=== PATIENT | male | born 1965 | race Caucasian/White ===

== ENCOUNTER → 2021-08-02 | Outpatient (CLI) | payer MEDICAID ==
[~2021-08-02] MED LIST: HYDR-4001 MT
== END | disposition home or self-care (01) ==
LOC: COVVAC 10:43
PROVIDERS: ATTEND Neurological Surgery
DX: Z20.822 Contact with and (suspected) exposure to COVID-19 (principal)
CPT/HCPCS: 87426

== ENCOUNTER 2021-08-04 05:23 | Inpatient (IN) | payer MEDICAID, OTHER ==
[~2021-08-04] VITALS: Ht 193 cm; Wt 67.1 kg
[2021-08-04] VITALS (45 sets, daily range): BP systolic 93–143; BP diastolic 48–91
[~2021-08-04 05:23] MED LIST changes: -HYDR-4001 MT; +METHADONE HCL 10MG TABLET PO NR
[2021-08-04] MEDS ORDERED: LACTATED RINGERS 1,000 ML IV SCH (06:15)
[2021-08-04] MEDS ORDERED: BACITRACIN 15GM TUBE TOP ONE (07:22)
[2021-08-04] MEDS ORDERED: GENTAMICIN SULF 40MG/ML 2ML VIAL ONE (07:22)
[2021-08-04] MEDS ORDERED: THROMBIN (BOVINE) 5000 UNITS/VIAL TOP ONE (07:23)
[2021-08-04 08:01] LABS: *BARBITURATES SCREEN URINE NEGATIVE (NEGATIVE); *BENZODIAZEPINES SCREEN URINE NEGATIVE (NEGATIVE); CANNABINOID URINE SCREEN PRESUMTIVE POSITIVE (NEGATIVE); METHADONE URINE SCREEN PRESUMTIVE POSITIVE (NEGATIVE); OPIATES URINE SCREEN PRESUMTIVE POSITIVE (NEGATIVE); PHENCYCLIDINE URINE SCREEN NEGATIVE (NEGATIVE)
[2021-08-04 08:02] LABS: *AMPHETAMINES SCREEN URINE PRESUMTIVE POSITIVE (NEGATIVE); *COCAINE SCREEN URINE NEGATIVE (NEGATIVE)
[2021-08-04] MEDS ORDERED: FENTANYL CITRATE/PF 50MCG/ML 2ML VIAL ONE (08:42)
[2021-08-04] MEDS ORDERED: PROPOFOL 200MG/20ML VIAL IV ONE (08:43)
[2021-08-04] MEDS ORDERED: GLYCOPYRROLATE 0.2 MG/ML 2ML VIAL ONE ×2 (08:43→11:39)
[2021-08-04] MEDS ORDERED: ROCURONIUM BROMIDE 10MG/ML VIAL 5ML IV ONE ×2 (08:43→09:45)
[2021-08-04] MEDS ORDERED: MIDAZOLAM HCL 2 MG/2 ML VIAL ONE (08:43)
[2021-08-04] MEDS ORDERED: NEOSTIGMINE METHYLSULFATE 1MG/ML 10 ML VIAL ONE (08:43)
[2021-08-04] MEDS ORDERED: DEXAMETHASONE 4MG/ML 1ML VIAL ONE (09:09)
[2021-08-04] MEDS ORDERED: ONDANSETRON HCL 4MG/2ML INJ ONE (09:09)
[2021-08-04] MEDS ORDERED: MEPERIDINE HCL/PF 25MG/ML CPJ IV PRN ×3 (09:30→11:45)
[2021-08-04] MEDS ORDERED: ONDANSETRON HCL 4MG/2ML INJ IV PRN ×3 (09:30→11:45)
[2021-08-04] MEDS ORDERED: HYDROMORPHONE HCL/PF 2MG/ML CPJ IV PRN ×2 (09:30→11:45)
[2021-08-04] MEDS ORDERED: LABETALOL 5MG/ML SYR 20 MG/4 ML SYRINGE IV PRN ×3 (09:30→11:45)
[2021-08-04] MEDS ORDERED: NALOXONE HCL 0.4 MG/ML 1ML VIAL ONE (11:40)
[2021-08-04] MEDS ORDERED: NICARDIPINE 100 MG in SODIUM CHLORIDE 0.9% 60 ML IV PRN (12:00)
[2021-08-04] MEDS: DEXT 5%/LACTATED RINGERS 1,000 ML IV SCH ×2 (12:00→23:30)
[2021-08-04] MEDS: HYDROMORPHONE HCL/PF 2MG/ML CPJ IV PRN ×2 (12:20→12:29)
[2021-08-04] MEDS ORDERED: HYDROMORPHONE PCA 10MG/50ML IV PRN (12:45)
[2021-08-04] MEDS ORDERED: ONDANSETRON INJ IV PRN (12:45)
[2021-08-04] MEDS ORDERED: NALOXONE INJ IV PRN (12:45)
[2021-08-04] MEDS ORDERED: DIPHENHYDRAMINE INJ IV PRN (12:45)
[2021-08-04] MEDS ORDERED: HYDROMORPHONE PCA 50 ML IV ONE (12:48)
[2021-08-04] MEDS: MORPHINE SULFATE 4 MG/ML CPJ (NOT FOR IM USE) IV PRN ×3 (14:01→21:23)
[2021-08-04] MEDS: DEXAMETHASONE 4MG/ML 1ML VIAL IV SCH ×3 (14:01→23:51)
[2021-08-04] MEDS ORDERED: MAGNESIUM/ALUMINUM HYDROXIDE/SIMETHICONE 30ML UDC PO PRN (14:15)
[2021-08-04] MEDS ORDERED: CLONIDINE 0.1MG TABLET PO PRN (14:15)
[2021-08-04] MEDS: OMEPRAZOLE 20MG CAPSULE EXTENDED RELEASE PO SCH (15:24)
[2021-08-05] VITALS (46 sets, daily range): BP systolic 84–145; BP diastolic 43–94
[2021-08-05] MEDS: MORPHINE SULFATE 4 MG/ML CPJ (NOT FOR IM USE) IV PRN (01:20)
[2021-08-05 05:45] LABS: HEMATOCRIT. 38.8 % (42.0-52.0); MEAN CORPUSCULAR HEMOGLOBIN 29.2 pg (28.0-32.0); MEAN PLATELET VOLUME 8.1 fl (7.4-10.4); PLATELET 413 x1000/uL (130-400); RED BLOOD CELL COUNT 4.45 mill/uL (4.7-6.1); RED CELL DISTRIBUTION WIDTH 12.8 % (11.6-14.6)
[2021-08-05] MEDS: DEXAMETHASONE 4MG/ML 1ML VIAL IV SCH ×2 (05:46→13:04)
[2021-08-05 05:59] LABS: CHLORIDE 99 mEq/L (98-107)
[2021-08-05] MEDS: OMEPRAZOLE 20MG CAPSULE EXTENDED RELEASE PO SCH (06:04)
[2021-08-05] MEDS: DEXT 5%/LACTATED RINGERS 1,000 ML IV SCH ×2 (08:00→19:00)
[2021-08-05 08:49] LABS: PLATELET ESTIMATE SLIGHTLY INCREASED
[2021-08-05] MEDS ORDERED: BISACODYL 5MG TABLET PO PRN (10:15)
[2021-08-05] MEDS ORDERED: METHADONE 70 MG XX SCH (10:15)
[2021-08-05] MEDS: METHADONE HCL 10MG TABLET PO SCH (13:04)
[2021-08-06] VITALS: BP 118/62
[2021-08-06] MEDS: DEXT 5%/LACTATED RINGERS 1,000 ML IV SCH ×2 (03:33→15:02)
[2021-08-06 04:00] VITALS: BP 114/72
[2021-08-06 07:05] LABS: BASOPHILS % 0.3 % (0.0-2.0); HEMATOCRIT. 35.2 % (42.0-52.0); HEMOGLOBIN. 11.7 g/dL (14.0-18.0); LYMPHOCYTES % 7.5 % (20.0-50.0); MEAN CORPUSCULAR HEMOGLOBIN 29.1 pg (28.0-32.0); MEAN CORPUSCULAR VOLUME 87.8 fL (80.0-94.0); NEUTROPHILS % 85.2 % (40.0-76.0); PLATELET 409 x1000/uL (130-400); RED CELL DISTRIBUTION WIDTH 13.1 % (11.6-14.6)
[2021-08-06] MEDS: OMEPRAZOLE 20MG CAPSULE EXTENDED RELEASE PO SCH (07:06)
[2021-08-06 07:10] LABS: CHLORIDE 98 mEq/L (98-107)
[2021-08-06 08:00] VITALS: BP 120/68
[2021-08-06 12:00] VITALS: BP 111/73
[2021-08-06] MEDS: METHADONE HCL 10MG TABLET PO SCH (12:48)
[2021-08-06 16:00] VITALS: BP 119/70
[2021-08-06 20:00] VITALS: BP 97/59
[2021-08-07] VITALS: BP 111/71
[2021-08-07] MEDS: DEXT 5%/LACTATED RINGERS 1,000 ML IV SCH ×3 (02:02→20:00)
[2021-08-07 04:00] VITALS: BP 109/64
[2021-08-07] MEDS: MORPHINE SULFATE 4 MG/ML CPJ (NOT FOR IM USE) IV PRN ×4 (04:17→22:57)
[2021-08-07 08:00] VITALS: BP 124/75
[2021-08-07] MEDS: FAMOTIDINE 20MG TABLET PO SCH ×2 (09:07→20:00)
[2021-08-07 12:00] VITALS: BP 107/70
[2021-08-07] MEDS: METHADONE HCL 10MG TABLET PO SCH (13:20)
[2021-08-07 16:00] VITALS: BP 101/62
[2021-08-07] MEDS ORDERED: NALOXONE HCL 0.4MG/ML VIAL IV PRN (18:15)
[2021-08-07 20:00] VITALS: BP 103/63
[2021-08-08] VITALS: BP 108/72
[2021-08-08 04:00] VITALS: BP 123/80
[2021-08-08] MEDS: DEXT 5%/LACTATED RINGERS 1,000 ML IV SCH ×2 (06:04→16:47)
[2021-08-08] MEDS: MORPHINE SULFATE 4 MG/ML CPJ (NOT FOR IM USE) IV PRN ×4 (06:05→20:04)
[2021-08-08 08:00] VITALS: BP 119/74
[2021-08-08] MEDS: FAMOTIDINE 20MG TABLET PO SCH ×2 (09:27→20:05)
[2021-08-08 12:00] VITALS: BP 114/81
[2021-08-08] MEDS: METHADONE HCL 10MG TABLET PO SCH (12:26)
[2021-08-08 16:00] VITALS: BP 110/67
[2021-08-08 20:00] VITALS: BP 94/63
[2021-08-09] VITALS: BP 101/62
[2021-08-09] MEDS: DEXT 5%/LACTATED RINGERS 1,000 ML IV SCH ×2 (02:39→12:59)
[2021-08-09] MEDS: MORPHINE SULFATE 4 MG/ML CPJ (NOT FOR IM USE) IV PRN (02:39)
[2021-08-09 04:00] VITALS: BP 123/70
[2021-08-09 08:00] VITALS: BP 103/64
[2021-08-09] MEDS: FAMOTIDINE 20MG TABLET PO SCH (08:58)
[2021-08-09 12:00] VITALS: BP 91/64
[2021-08-09] MEDS: METHADONE HCL 10MG TABLET PO SCH ×2 (12:00→16:01)
[2021-08-09] MEDS: POLYETHYLENE GLYCOL 3350 (17GM) 1 DOSE PACK PO SCH (13:00)
[2021-08-09 16:00] VITALS: BP 112/67
[2021-08-09] MEDS: DOCUSATE SODIUM 100MG CAPSULE PO SCH (17:29)
[2021-08-09 20:00] VITALS: BP 88/47
[2021-08-10] VITALS (7 sets, daily range): BP systolic 96–125; BP diastolic 53–76
[2021-08-10] MEDS: FAMOTIDINE 20MG TABLET PO SCH ×3 (00:36→20:45)
[2021-08-10] MEDS: DEXT 5%/LACTATED RINGERS 1,000 ML IV SCH ×3 (00:36→17:10)
[2021-08-10] MEDS: MORPHINE SULFATE 4 MG/ML CPJ (NOT FOR IM USE) IV PRN ×3 (05:47→21:58)
[2021-08-10] MEDS: POLYETHYLENE GLYCOL 3350 (17GM) 1 DOSE PACK PO SCH (09:00)
[2021-08-10] MEDS: DOCUSATE SODIUM 100MG CAPSULE PO SCH ×2 (09:49→17:10)
[2021-08-10] MEDS ORDERED: LACTULOSE 20G/30ML UDC PO STA (12:21)
[2021-08-10] MEDS: LACTULOSE 20G/30ML UDC PO SCH ×3 (13:06→20:44)
[2021-08-10] MEDS: METHADONE HCL 10MG TABLET PO SCH (14:44)
[2021-08-11] VITALS: BP 91/53
[2021-08-11 08:00] VITALS: BP 128/66
[2021-08-11] MEDS: POLYETHYLENE GLYCOL 3350 (17GM) 1 DOSE PACK PO SCH (08:29)
[2021-08-11] MEDS: DOCUSATE SODIUM 100MG CAPSULE PO SCH ×2 (08:29→17:00)
[2021-08-11] MEDS: FAMOTIDINE 20MG TABLET PO SCH ×2 (08:29→21:35)
[2021-08-11] MEDS: DEXT 5%/LACTATED RINGERS 1,000 ML IV SCH ×2 (08:30→14:32)
[2021-08-11 12:00] VITALS: BP 98/66
[2021-08-11] MEDS: MORPHINE SULFATE 4 MG/ML CPJ (NOT FOR IM USE) IV PRN ×2 (13:32→21:35)
[2021-08-11 16:00] VITALS: BP 95/62
[2021-08-11 20:00] VITALS: BP 106/65
[2021-08-12] VITALS: BP 91/54
[2021-08-12 04:00] VITALS: BP 106/58
[2021-08-12] MEDS: MORPHINE SULFATE 4 MG/ML CPJ (NOT FOR IM USE) IV PRN (05:59)
[2021-08-12 08:00] VITALS: BP 98/68
[2021-08-12] MEDS: POLYETHYLENE GLYCOL 3350 (17GM) 1 DOSE PACK PO SCH (09:00)
[2021-08-12] MEDS: DOCUSATE SODIUM 100MG CAPSULE PO SCH ×2 (10:24→16:51)
[2021-08-12] MEDS: FAMOTIDINE 20MG TABLET PO SCH ×2 (10:24→21:38)
[2021-08-12 12:00] VITALS: BP 98/66
[2021-08-12 13:25] LABS: BASOPHILS % 1.3 % (0.0-2.0); EOSINOPHILS % 5.2 % (0.0-5.0); HEMATOCRIT. 37.5 % (42.0-52.0); HEMOGLOBIN. 12.4 g/dL (14.0-18.0); MEAN CORPUSCULAR HEMOGLOBIN 29.5 pg (28.0-32.0); MEAN CORPUSCULAR VOLUME 89.1 fL (80.0-94.0); MEAN PLATELET VOLUME 8.7 fl (7.4-10.4); MONOCYTES % 10.3 % (2.0-8.0); NEUTROPHILS % 63.2 % (40.0-76.0); PLATELET 351 x1000/uL (130-400); RED CELL DISTRIBUTION WIDTH 12.7 % (11.6-14.6)
[2021-08-12] MEDS: METHADONE HCL 10MG TABLET PO SCH (13:59)
[2021-08-12 16:00] VITALS: BP 95/67
[2021-08-12] MEDS ORDERED: MORPHINE SULFATE 2 MG/ML CPJ (NOT FOR IM USE) IV PRN ×2 (17:40→22:35)
[2021-08-12 20:00] VITALS: BP 102/67
[2021-08-12 20:35] LABS: HEMATOCRIT 36.2 % (42.0-52.0); HEMOGLOBIN 11.9 g/dL (14.0-18.0)
[2021-08-12 20:56] LABS: TOTAL IRON BINDING CAPACITY 391 ug/dL (250-450)
[2021-08-12 21:11] LABS: FOLIC ACID (FOLATE) SERUM 7.5 ng/mL (>5.38)
[2021-08-13] VITALS: BP 94/54
[2021-08-13 01:13] LABS: HEMATOCRIT 33.3 % (42.0-52.0); HEMOGLOBIN 11.1 g/dL (14.0-18.0)
[2021-08-13 04:00] VITALS: BP 98/61
[2021-08-13 06:51] LABS: EOSINOPHILS % 6.8 % (0.0-5.0); HEMATOCRIT. 33.8 % (42.0-52.0); HEMOGLOBIN. 11.4 g/dL (14.0-18.0); LYMPHOCYTES % 24.2 % (20.0-50.0); MEAN CORPUSCULAR HEMOGLOBIN 29.3 pg (28.0-32.0); MEAN CORPUSCULAR VOLUME 86.8 fL (80.0-94.0); MEAN PLATELET VOLUME 7.6 fl (7.4-10.4); MONOCYTES % 11.6 % (2.0-8.0); NEUTROPHILS % 56.4 % (40.0-76.0); PLATELET 446 x1000/uL (130-400); RED BLOOD CELL COUNT 3.89 mill/uL (4.7-6.1); RED CELL DISTRIBUTION WIDTH 12.8 % (11.6-14.6)
[2021-08-13 07:14] LABS: CHLORIDE 101 mEq/L (98-107)
[2021-08-13] MEDS: POLYETHYLENE GLYCOL 3350 (17GM) 1 DOSE PACK PO SCH (09:00)
[2021-08-13] MEDS: FAMOTIDINE 20MG TABLET PO SCH (09:43)
[2021-08-13] MEDS: DOCUSATE SODIUM 100MG CAPSULE PO SCH (09:43)
[2021-08-13] MEDS: METHADONE HCL 10MG TABLET PO SCH (09:52)
[2021-08-13 13:23] LABS: HEMATOCRIT 38.3 % (42.0-52.0)
[2021-08-13] MEDS ORDERED: HYDR-4001 MT (14:54)
[2021-08-13 15:30] VITALS: BP 100/55
== END 2021-08-13 17:57 | disposition home or self-care (01) | DRG 321 ==
LOC: OR 05:23 → MICUNO 05:24 → 6EST 08-05 16:45
PROVIDERS: ADMIT Neurological Surgery; ATTEND Neurological Surgery
PROC: 0RG20A0 Fusion of 2 or more Cervical Vertebral Joints with Interbody Fusion Device, Anterior Approach, Anterior Column, Open Approach (ICD-10-PCS; principal; 2021-08-04)
PROC: 01N10ZZ Release Cervical Nerve, Open Approach (ICD-10-PCS; 2021-08-04)
PROC: 0RB30ZZ Excision of Cervical Vertebral Disc, Open Approach (ICD-10-PCS; 2021-08-04)
PROC: 4A11X4G Monitoring of Peripheral Nervous Electrical Activity, Intraoperative, External Approach (ICD-10-PCS; 2021-08-04)
DX: M47.12 Other spondylosis with myelopathy, cervical region (principal); G82.50 Quadriplegia, unspecified; R64 Cachexia; M48.02 Spinal stenosis, cervical region; B19.20 Unspecified viral hepatitis C without hepatic coma; D64.9 Anemia, unspecified; D72.829 Elevated white blood cell count, unspecified; F17.210 Nicotine dependence, cigarettes, uncomplicated; M54.12 Radiculopathy, cervical region; F14.10 Cocaine abuse, uncomplicated; R13.10 Dysphagia, unspecified; F15.10 Other stimulant abuse, uncomplicated; F12.10 Cannabis abuse, uncomplicated; R53.81 Other malaise; R26.9 Unspecified abnormalities of gait and mobility; R73.9 Hyperglycemia, unspecified; Z71.51 Drug abuse counseling and surveillance of drug abuser; Z71.6 Tobacco abuse counseling; Z68.1 Body mass index [BMI] 19.9 or less, adult
CPT/HCPCS: 36415; 72040; 72141; 76000; 80048; 80076; 80305; 82607; 82728; 82746; 83036; 83540; 83550; 83735; 84100; 85014; 85018; 85025; 85044; 86850; 86900; 88304; 88311; 92610; 93970; 95863; 95925; 95926; 95928; 95929; 97110; 97116; 97162; 97165; 97530; 97535; C1713; J1100; J1170; J1580; J2250; J2270; J2310; J2405; J2704; J2710; J3010; J3490; J7050; J7121; C1762